=== PATIENT | male | born 1995 | race Caucasian/White ===

== ENCOUNTER 2017-05-19 03:12 | Emergency (ER) | payer SELFPAY ==
[2017-05-19] MEDS ORDERED: NEOSPORIN OINT 0.9 GM PKT (FLOOR STOCK) As Ordered (05:43)
== END 2017-05-19 03:30 | disposition left against medical advice (07) ==
LOC: M ED 03:12
DX: Z53.29 Procedure and treatment not carried out because of patient's decision for other reasons (principal)

== ENCOUNTER 2017-11-16 02:39 | Emergency (ER) | payer OTHER, SELFPAY | END 2017-11-16 06:49 | disposition home or self-care (01) | LOC: M ED 02:39 | DX: S02.2XXA Fracture of nasal bones, initial encounter for closed fracture (principal); X58.XXXA Exposure to other specified factors, initial encounter; Y92.009 Unspecified place in unspecified non-institutional (private) residence as the place of occurrence of the external cause | CPT/HCPCS: 70160 ==

== ENCOUNTER 2020-11-23 16:27 | Emergency (ER) | payer OTHER ==
[~2020-11-23] VITALS: Ht 177.8 cm; Wt 94.7 kg
[2020-11-23 16:29] VITALS: BP 146/75
[2020-11-23] MEDS ORDERED: NAPR-837 PO (20:33)
--- NOTE | 2020-11-23 21:17 | REPVR ---
PROCEDURE INFORMATION: Exam: XR Right Shoulder Exam date and time: 11/23/2020 8:18 PM Age: 25 years old Clinical indication: Other: Injury while llifting; Additional info: Injury while lifting TECHNIQUE: Imaging protocol: XR Right shoulder. Views: 2 or more views. COMPARISON: No relevant prior studies available. FINDINGS: Bones/joints: There is no evidence of fracture or dislocation. There is prominent downsloping of the acromion into the rotator cuff. Soft tissues: Normal. IMPRESSION: Downsloping of the acromion Electronically signed by: Denny Ventura On 11/23/2020 21:16:35 PM
== END 2020-11-23 20:50 | disposition home or self-care (01) ==
LOC: M ED 16:27
DX: S46.001A Unspecified injury of muscle(s) and tendon(s) of the rotator cuff of right shoulder, initial encounter (principal); X58.XXXA Exposure to other specified factors, initial encounter; Y92.89 Other specified places as the place of occurrence of the external cause; Y93.9 Activity, unspecified; Y99.0 Civilian activity done for income or pay; F17.200 Nicotine dependence, unspecified, uncomplicated

== ENCOUNTER 2021-05-18 12:12 | Emergency (ER) | payer OTHER ==
[~2021-05-18] VITALS: Ht 177.8 cm; Wt 97.5 kg
[~2021-05-18 12:12] MED LIST: NAPR-837 PO
[2021-05-18 12:13] VITALS: BP 152/82
[2021-05-18] MEDS ORDERED: KETOROLAC 30 MG/ML 1ML VIAL IV ONE (14:40)
[2021-05-18 15:27] LABS: BASO % 0.4 % (0.0-1.0); EOS % 0.5 % (0.0-3.0); HEMATOCRIT 46.9 % (42.0-52.0); HEMOGLOBIN 16.5 g/dl (13.5-17.5); LYMPH # 1.9 10^3/uL (1.5-5.0); LYMPH % 25.7 % (24.0-44.0); MEAN CORPUSCULAR HEMOGLOBIN 32.7 pg (27.0-33.0); MEAN CORPUSCULAR HGB CONC 35.2 g/dl (32.0-36.5); MEAN CORPUSCULAR VOLUME 92.9 fl (80.0-96.0); MONO # 0.5 10^3/uL (0.0-0.8); MONO % 6.3 % (2.0-8.0); NEUTROPHILS % 66.6 % (36.0-66.0); PLATELET COUNT, AUTOMATED 261 10^3/uL (150-450); RED BLOOD COUNT 5.05 10^6/uL (4.30-6.10); WHITE BLOOD COUNT 7.5 10^3/uL (4.0-10.0)
[2021-05-18 15:32] LABS: APPEARANCE, URINE CLEAR (CLEAR); BACTERIA, URINE AUTO NEGATIVE (NEGATIVE); BILIRUBIN, URINE AUTO NEGATIVE (NEGATIVE); BLOOD, URINE BLOOD NEGATIVE (NEGATIVE); COLOR, URINE YELLOW (YELLOW); GLUCOSE, URINE (UA) AUTO NEGATIVE (NEGATIVE); KETONE, URINE AUTO NEGATIVE (NEGATIVE); LEUKOCYTE ESTERASE, URINE AUTO NEGATIVE (NEGATIVE); MUCUS, URINE SMALL (NEGATIVE); NITRITE, URINE AUTO NEGATIVE (NEGATIVE); PROTEIN, URINE AUTO NEGATIVE (NEGATIVE); RBC, URINE AUTO 2 /HPF (0-3); SPECIFIC GRAVITY URINE AUTO 1.025 (1.002-1.035); SQUAMOUS EPITHELIAL CELL UR AU 0 /HPF (0-6); UROBILINOGEN, URINE AUTO 0.2 mg/dL (0.0-2.0); WBC, URINE AUTO 0 /HPF (0-3)
[2021-05-18 16:06] LABS: ALBUMIN 4.8 GM/DL (3.2-5.2); ALT/SGPT 66 U/L (12-78); BILIRUBIN,DIRECT 0.2 MG/DL (0.0-0.2); BILIRUBIN,TOTAL 0.9 MG/DL (0.2-1.0); BLOOD UREA NITROGEN 14 MG/DL (7-18); CALCIUM LEVEL 9.9 MG/DL (8.5-10.1); CARBON DIOXIDE LEVEL 26 MEQ/L (21-32); CHLORIDE LEVEL 106 MEQ/L (98-107); CREATININE FOR GFR 1.09 MG/DL (0.70-1.30); GLOMERULAR FILTRATION RATE > 60.0 (>60); GLUCOSE, FASTING 86 MG/DL (70-100); POTASSIUM SERUM 4.5 MEQ/L (3.5-5.1); SODIUM LEVEL 139 MEQ/L (136-145); TOTAL PROTEIN 7.8 GM/DL (6.4-8.2)
[2021-05-18] MEDS ORDERED: KETO10TAB PO (16:23)
== END 2021-05-18 16:39 | disposition home or self-care (01) ==
LOC: M ED 12:12
DX: K40.90 Unilateral inguinal hernia, without obstruction or gangrene, not specified as recurrent (principal); R10.9 Unspecified abdominal pain; N50.89 Other specified disorders of the male genital organs; I86.1 Scrotal varices
CPT/HCPCS: 76857; 76870; 80048; 80076; 81001; 85025; 93976; 96374; 99283; J1885

== ENCOUNTER 2021-07-16 23:20 | Emergency (ER) | payer OTHER ==
[~2021-07-16] VITALS: Ht 177.8 cm; Wt 95.9 kg
[~2021-07-16 23:20] MED LIST changes: +KETO10TAB PO
[2021-07-16] MEDS ORDERED: NS 1,000 ML IV ONE (23:30)
[2021-07-17 00:25] LABS: BASO # 0.1 10^3/uL (0.0-0.2); EOS # 0.1 10^3/uL (0.0-0.5); HEMATOCRIT 44.4 % (42.0-52.0); HEMOGLOBIN 15.7 g/dl (13.5-17.5); LYMPH % 29.1 % (24.0-44.0); MEAN CORPUSCULAR HEMOGLOBIN 32.5 pg (27.0-33.0); MEAN CORPUSCULAR HGB CONC 35.4 g/dl (32.0-36.5); MEAN CORPUSCULAR VOLUME 91.9 fl (80.0-96.0); MONO # 0.5 10^3/uL (0.0-0.8); MONO % 7.9 % (2.0-8.0); NEUTROPHILS # 4.1 10^3/uL (1.5-8.5); NEUTROPHILS % 60.3 % (36.0-66.0); PLATELET COUNT, AUTOMATED 276 10^3/uL (150-450); RED BLOOD COUNT 4.83 10^6/uL (4.30-6.10); WHITE BLOOD COUNT 6.9 10^3/uL (4.0-10.0)
[2021-07-17 00:26] LABS: ALBUMIN 4.3 GM/DL (3.2-5.2); ALT/SGPT 74 U/L (12-78); BILIRUBIN,DIRECT < 0.1 MG/DL (0.0-0.2); BILIRUBIN,TOTAL 0.5 MG/DL (0.2-1.0); BLOOD UREA NITROGEN 12 MG/DL (7-18); CARBON DIOXIDE LEVEL 25 MEQ/L (21-32); CHLORIDE LEVEL 109 MEQ/L (98-107); CREATININE FOR GFR 1.18 MG/DL (0.70-1.30); GLOMERULAR FILTRATION RATE > 60.0 (>60); GLUCOSE, FASTING 135 MG/DL (70-100); LIPASE 87 U/L (73-393); SODIUM LEVEL 138 MEQ/L (136-145); TOTAL PROTEIN 7.4 GM/DL (6.4-8.2)
[2021-07-17] MEDS ORDERED: KETOROLAC 30 MG/ML 1ML VIAL IV ONE (02:00)
[2021-07-17 04:00] VITALS: BP 113/58
[2021-07-17] MEDS ORDERED: KETOROLAC 30 MG/ML 1ML VIAL As Ordered ONE (04:13)
== END 2021-07-17 04:25 | disposition home or self-care (01) ==
LOC: M ED 23:20
DX: R80.9 Proteinuria, unspecified (principal); F17.290 Nicotine dependence, other tobacco product, uncomplicated; K57.30 Diverticulosis of large intestine without perforation or abscess without bleeding
CPT/HCPCS: 74176; 80048; 80076; 81001; 83690; 85025; 93041; 96361; 96374; 99284; J1885

== ENCOUNTER → 2022-10-10 | Outpatient (CLI) | payer OTHER | LOC: M PLAIMG 07:56 | PROVIDERS: ATTEND Physician Assistant Surgical | DX: S53.442A Ulnar collateral ligament sprain of left elbow, initial encounter (principal); Y92.9 Unspecified place or not applicable; Y93.9 Activity, unspecified; Y99.9 Unspecified external cause status ==

== ENCOUNTER 2023-10-31 22:26 | Emergency (ER) | payer OTHER, SELFPAY ==
[~2023-10-31] VITALS: Ht 177.8 cm; Wt 98.5 kg
[2023-10-31 22:26] VITALS: BP 133/83; TEMP 97.7; O2SAT 97
== END 2023-11-01 03:22 | disposition left against medical advice (07) ==
LOC: M ED 22:26
DX: Z53.21 Procedure and treatment not carried out due to patient leaving prior to being seen by health care provider (principal)

== ENCOUNTER → 2024-03-25 | Outpatient (CLI) | payer OTHER | LOC: M SLEEP 20:00 | PROVIDERS: ATTEND Family Medicine | DX: G47.33 Obstructive sleep apnea (adult) (pediatric) (principal); R06.83 Snoring ==

== ENCOUNTER → 2024-12-15 | Outpatient (CLI) | payer OTHER | LOC: M RAD 14:51 | PROVIDERS: ATTEND Physician Assistant Medical | DX: J32.0 Chronic maxillary sinusitis (principal) ==